=== PATIENT | male | born 1990 | race Caucasian/White ===

== ENCOUNTER 2016-11-08 22:15 | Emergency (ER) | payer OTHER ==
[~2016-11-08] VITALS: Ht 185.4 cm; Wt 79.7 kg
[2016-11-08 22:24] VITALS: TEMP 37.1; Ht 185.4 cm; Wt 79.7 kg
[2016-11-08 22:57] LABS: URINE APPEARANCE CLEAR (CLEAR); URINE BILIRUBIN NEG (NEG); URINE COLOR DK YELLOW; URINE NITRITE NEG (NEG); URINE PH 5.5 (4.5-7.5); URINE SPECIFIC GRAVITY 1.027 (1.000-1.030); UROBILINOGEN NEG (NEG); ZZUR CULT IF INDIC CLEAN CATCH NO
[2016-11-08 22:58] LABS: BASO % 0.4 %; BASO ABS # 0.03 K/uL (0-0.2); COMPLETE YES; EOS % 2.6 %; HEMATOCRIT 49.4 % (42-52); IG% 0.2 %; LYMPH % 37.8 %; LYMPH ABS # 3.05 K/uL (1.2-3.4); MEAN CELL VOLUME 87.9 fL (80-100); MEAN CORPUSCULAR HEMOGLOBIN 31.1 pg (25-34); MEAN CORPUSCULAR HGB CONC 35.4 g/dl (32-36); MEAN PLATELET VOLUME 9.5 fL (7.4-10.4); MONO % 8.8 %; NEUT % 50.2 %; PLATELET COUNT 248 K/uL (130-400); RED BLOOD COUNT 5.62 M/uL (4.7-6.1); WHITE BLOOD COUNT 8.06 K/uL (4.8-10.8)
[2016-11-08 23:00] LABS: MANUAL MICROSCOPIC REQUIRED? NO; REVIEW REQ? NO
[2016-11-08 23:15] LABS: BUN/CREATININE RATIO 18.8 (10-20); CALCIUM 9.1 mg/dl (8.5-10.1); CREATININE 0.86 mg/dl (0.60-1.40); POTASSIUM 3.5 mmol/L (3.5-5.1)
[2016-11-08] MEDS ORDERED: MULT-225 PO (23:49)
[2016-11-08] MEDS ORDERED: ASCO500T16 PO (23:49)
[2016-11-08] MEDS ORDERED: MULT-506 PO (23:50)
--- NOTE | 2016-11-09 00:09 | EMERGENCY ROOM VISIT NOTE ---
History First contact with patient: 22:20 Chief Complaint: URINARY SYMPTOMS Stated Complaint: BURNING WITH URINATION,URINARY FREQUENCY Nursing Triage Summary: pt c/o urinary burning, states SO was dx with UTI today. symptoms "for a couple days." denies discharge History of Present Illness The patient is a 26 year old male who presents to the Emergency Room with complaints of testicular pain, penile pain, dysuria for the past few days. Patient states he has had chlamydia before and symptoms feel similar. Patient denies penile discharge, rashes, fevers, chest pain, dyspnea, abdominal pain, vomiting, diarrhea. He states his girlfriend was told that she had a bladder infection from urgent care. They did not do a pelvic exam. He has had chlamydia before. No other ST eyes. Review of Systems See HPI for pertinent positives & negatives. A total of 10 systems reviewed and were otherwise negative. Past Medical/Surgical History Chlamydia Social History Smoking Status: Current Every Day Smoker Alcohol Use: none Drug Use: none Marital Status: in relationship Current/Historical Medications Scheduled Ascorbic Acid (Ascorbic Acid), 500 MG PO DAILY Multivitamin (Multivitamin), 1 TAB PO DAILY Physical Exam Vital Signs Date Time Temp Pulse Resp B/P (MAP) Pulse Ox O2 Delivery O2 Flow Rate FiO2 11/08/16 23:27 90 16 119/60 97 Room Air 11/08/16 22:24 37.1 95 18 129/84 97 Room Air Physical Exam VITALS: Vitals are noted on the nurse's note and reviewed by myself. Vital signs stable. GENERAL: Pleasant male anxious-appearing, in no acute distress, nondiaphoretic, well-developed well-nourished. SKIN: Capillary reflex less than 2 seconds. HEENT: Normocephalic. PERRLA. EOMI. Nares patent. Mucous membranes moist. Neck is supple without nuchal rigidity. HEART: Regular rate and rhythm without murmurs gallops or rubs. LUNGS: Clear to auscultation bilaterally without wheezes, rales or rhonchi. No retractions or accessory muscle use. ABDOMEN: Positive bowel sounds x 4. Normal tympanic percussion. Soft, nontender, without masses or organomegaly. Landis sign negative. No guarding or rebound tenderness. no CVA tenderness exam: Normal male genitalia, circumcised, no rashes or lesions, right testicle tender to palpation, left testicle normal, cultures taken and sent, linen controller present. Cremasteric reflex intact MUSCULOSKELETAL: No gross musculoskeletal defects. NEURO: Patient was alert and oriented to person place and time. Normal sensation to light and sharp touch. No focal neurological deficits. Medical Decision & Procedures Laboratory Results 11/08/16 22:45 Red Blood Count 5.62, Mean Corpuscular Volume 87.9, Mean Corpuscular Hemoglobin 31.1, Mean Corpuscular Hemoglobin Concent 35.4, Mean Platelet Volume 9.5, Neutrophils (%) (Auto) 50.2, Lymphocytes (%) (Auto) 37.8, Monocytes (%) (Auto) 8.8, Eosinophils (%) (Auto) 2.6, Basophils (%) (Auto) 0.4, Neutrophils # (Auto) 4.04, Lymphocytes # (Auto) 3.05, Monocytes # (Auto) 0.71, Eosinophils # (Auto) 0.21, Basophils # (Auto) 0.03 11/08/16 22:45 Test 11/08/16 22:35 11/08/16 22:45 White Blood Count 8.06 K/uL (4.8-10.8) Red Blood Count 5.62 M/uL (4.7-6.1) Hemoglobin 17.5 g/dL (14.0-18.0) Hematocrit 49.4 % (42-52) Mean Corpuscular Volume 87.9 fL (80-100) Mean Corpuscular Hemoglobin 31.1 pg (25-34) Mean Corpuscular Hemoglobin Concent 35.4 g/dl (32-36) Platelet Count 248 K/uL (130-400) Mean Platelet Volume 9.5 fL (7.4-10.4) Neutrophils (%) (Auto) 50.2 % Lymphocytes (%) (Auto) 37.8 % Monocytes (%) (Auto) 8.8 % Eosinophils (%) (Auto) 2.6 % Basophils (%) (Auto) 0.4 % Neutrophils # (Auto) 4.04 K/uL (1.4-6.5) Lymphocytes # (Auto) 3.05 K/uL (1.2-3.4) Monocytes # (Auto) 0.71 K/uL (0.11-0.59) Eosinophils # (Auto) 0.21 K/uL (0-0.5) Basophils # (Auto) 0.03 K/uL (0-0.2) RDW Standard Deviation 45.2 fL (36.4-46.3) RDW Coefficient of Variation 14.0 % (11.5-14.5) Immature Granulocyte % (Auto) 0.2 % Immature Granulocyte # (Auto) 0.02 K/uL (0.00-0.02) Urine Color DK YELLOW Urine Appearance CLEAR (CLEAR) Urine pH 5.5 (4.5-7.5) Urine Specific [place] 1.027 (1.000-1.030) Urine Protein NEG (NEG) Urine Glucose (UA) NEG (NEG) Urine Ketones TRACE (NEG) Urine Occult Blood NEG (NEG) Urine Nitrite NEG (NEG) Urine Bilirubin NEG (NEG) Urine Urobilinogen NEG (NEG) Urine Leukocyte Esterase NEG (NEG) Anion Gap 6.0 mmol/L (3-11) Est Creatinine Clear Calc Drug Dose 144.2 ml/min Estimated GFR () 136.8 Estimated GFR (Non- 118.0 BUN/Creatinine Ratio 18.8 (10-20) Calcium Level 9.1 mg/dl (8.5-10.1) ED Course Prior records/ancillary studies reviewed. Triage Nursing notes reviewed. The patient's history was concerning for urinary problems. Differential diagnosis: Etiologies such as STI, epididymitis, renal colic, UTI, as well as others were entertained. Physical examination findings: As above. ER treatment provided: Rocephin, Zithromax On reassessment the patient felt better. Diagnostics interpreted by me: The labs revealed negative urine. GC chlamydia culture pending Imaging studies: US SCROTAL: No intratesticular mass lesion or torsion. Small varicoceles. Radiologist: Rosalio Owen M.D. Exam and history seem consistent with STI. Patient has had chlamydia before and symptoms of similar. He was treated for this. He was advised to have his girlfriend checked and to abstain from intercourse until he is reviewed his results. He was advised to follow-up family care in a few days or here in the ER sooner for abdominal Pain, penile discharge, fevers, worsening signs or symptoms or as needed. Patient did not have acute abdomen on exam. He is well- appearing. No signs of torsion. By the evaluation outlined above emergent etiologies such as appendicitis, UTI, testicular torsion, renal colic, as well as others were deemed relatively unlikely. The pt informed about the findings as listed above. All questions were answered and pleased with the treatment. Return instructions were outlined and the patient was discharged in stable condition. Referral: The patient was referred back to their primary care physician for follow-up in 2 to 3 days for a recheck of the current condition. Case reviewed with my attending. Medical Decision As above Medication Reconcilliation Current Medication List: was personally reviewed by me Blood Pressure Screening Patient's blood pressure: Normal blood pressure Impression Primary Impression: Dysuria Additional Impressions: possible STI Screening for STD (sexually transmitted disease) Departure Information Dispostion Home / Self-Care Condition GOOD Referrals No Doctor, Assigned (PCP) Patient Instructions My [facility] Additional Instructions No intercourse until you have reviewed your culture results. Recommend that he have your partner checked for sexual transmitted infections transmitted infections. Ibuprofen(Motrin, Advil) may be used for fever or pain. Use 600mg every six hours as needed. Take with food. Avoid using more than 2400mg in a 24 hour period. Do not use 2400mg per day for more than three consecutive days without physician direction. Prolonged inappropriate use can lead to stomach upset or ulcers. (AND/OR) Acetaminophen(Tylenol) may be used for fever or pain. Use 1000mg every six hours as needed. Avoid using more than 3000mg in a 24 hour period. Rest and drink plenty of fluids as tolerated. Continue current medications. Avoid strenuous activities and anything that worsens your pain. Resume normal activities once your symptoms resolve. Return to the ER immediately for worsening or persistent urinary symptoms, abdominal pain, vomiting, fevers, chest pains, difficulty breathing, worsening of your condition, or as needed. Follow up with your primary physician in 2-3 days for a recheck of your current condition. Problem Qualifiers
[2016-11-09] MEDS ORDERED: AZITHROMYCIN 250 MG TAB PO ONE (00:15)
[2016-11-09] MEDS ORDERED: CEFTRIAXONE SOD INJ 250 MG/ML VIAL IM ONE (00:15)
[2016-11-09] MEDS ORDERED: CEFTRIAXONE SOD 350MG/ML 1 GM VIAL IM ONE (00:16)
[2016-11-09 00:18] VITALS: BP 125/67; PULSE 80; O2SAT 96
--- NOTE | 2016-11-09 07:17 | DIAGNOSTIC IMAGING REPORT ---
(TESTICULAR) SCROTUM-CONT CLINICAL HISTORY: 26 years-old Male with acute bilateral scrotal pain. Initial exam. COMPARISON STUDY: None available TECHNIQUE: Real-time, grayscale, and color Doppler sonography of the testes and scrotum is performed. Images are reviewed in the transverse and longitudinal planes. FINDINGS: RIGHT HEMISCROTUM: The right testis measures 3.0 x 4.5 x 2.1 cm and the parenchyma appears unremarkable. No intratesticular mass is seen. Normal-appearing arterial inflow is present within the right testicle. The right epididymal head demonstrates a nonspecific focal area of increased echogenicity, 0.2 cm and is otherwise unremarkable. Small varicocele is noted. LEFT HEMISCROTUM: The left testis measures 2.5 x 4.6 x 2.3 cm and the parenchyma appears unremarkable. No intratesticular mass is seen. Normal-appearing arterial inflow is present within the left testicle. The left epididymal head appears normal. Small varicocele is noted. IMPRESSION: 1. Normal sonographic appearance of the bilateral testicles without evidence of torsion. 2. Small bilateral varicoceles. The above report was generated using voice recognition software. It may contain grammatical, syntax or spelling errors. Electronically signed by: Lele Blancas M.D. 11/09/2016 7:16 AM Dictated Date/Time: 11/09/2016 7:12 AM
[2016-11-12 08:03] LABS: CHLAMYDIA TRACH RNA*** NOT DETECTED (NOT DETECTED); GC (NEIS GONORRHOEAE)RNA** NOT DETECTED (NOT DETECTED)
== END 2016-11-09 00:35 | disposition home or self-care (01) ==
LOC: C.EDB 22:18 → C.EDC 11-09 00:35
DX: R30.0 Dysuria (principal); Z11.3 Encounter for screening for infections with a predominantly sexual mode of transmission; F17.200 Nicotine dependence, unspecified, uncomplicated

== ENCOUNTER → 2016-11-17 | Outpatient (CLI) | payer OTHER ==
[~2016-11-17] MED LIST: ASCO500T16 PO; MULT-506 PO
== END | disposition home or self-care (01) ==
LOC: C.LAB 01:22
DX: Z02.83 Encounter for blood-alcohol and blood-drug test (principal)

== ENCOUNTER 2016-11-19 19:48 | Emergency (ER) | payer SELFPAY ==
[~2016-11-19] VITALS: Ht 185.4 cm; Wt 79.2 kg
[2016-11-19 19:51] VITALS: TEMP 36.7; O2SAT 98; Ht 185.4 cm; Wt 79.2 kg
[2016-11-19] MEDS ORDERED: KETOROLAC TROMETHAMINE 60 MG/2 ML VIAL IM STA (20:08)
--- NOTE | 2016-11-19 20:34 | EMERGENCY ROOM VISIT NOTE ---
History First contact with patient: 19:55 Chief Complaint: HEADACHE Stated Complaint: BACK,SHOULDER/EAR PAIN, HEADACHE History of Present Illness The patient is a 26 year old male who presents to the Emergency Room with complaints of headaches for the past 2 months. The patient states that over the past 2 months, he has had frequent headaches. The pain radiates across the front of his head and into his ears and jaw. The pain also radiates into his neck and shoulders. He states that the pain does improve at times, but he has been having headaches almost every day. He denies any alleviating or aggravating factors. He has been taking Tylenol, aspirin and ibuprofen with some relief. He rates his discomfort a 7/10 at this time. He denies any associated nausea/vomiting, photosensitivity, vision changes, fevers, confusion , numbness or weakness. He denies any history of headache disorders. This is not the worst headache of his life. Review of Systems A complete 10 point review of systems was reviewed with the patient with pertinent positives and negatives as per history of present illness. All else were negative. Social History Smoking Status: Current Every Day Smoker Alcohol Use: none Drug Use: none Marital Status: in relationship Current/Historical Medications Scheduled Ascorbic Acid (Ascorbic Acid), 500 MG PO DAILY Multivitamin (Multivitamin), 1 TAB PO DAILY Physical Exam Vital Signs Date Time Temp Pulse Resp B/P (MAP) Pulse Ox O2 Delivery O2 Flow Rate FiO2 11/19/16 21:16 72 18 139/80 Room Air 11/19/16 19:51 36.7 87 16 137/89 98 Room Air Physical Exam VITALS: Vitals are noted on the nurse's note and reviewed by myself. Vital signs stable. GENERAL: This is a 26-year-old male, in no acute distress, nondiaphoretic, well- developed well-nourished. HEAD: Normocephalic atraumatic. EARS: External auditory canals clear, tympanic membranes pearly [place] without erythema or effusion bilaterally. EYES: Pupils equal round and reactive to light and accommodation. Conjunctivae without injection, sclerae without icterus. Extraocular movements intact. MOUTH: Mucous membranes moist. Tonsils are not enlarged. Pharynx without erythema or exudate. NECK: Supple without nuchal rigidity. No lymphadenopathy. HEART: Regular rate and rhythm without murmurs gallops or rubs. LUNGS: Clear to auscultation bilaterally without wheezes, rales or rhonchi. MUSCULOSKELETAL: Strength 5/5 throughout. NEURO: Patient was alert and oriented to person place and time. Normal sensation to light and sharp touch. Deep tendon reflexes 2+ throughout. No focal neurological deficits. Medical Decision & Procedures ER Provider Diagnostic Interpretation: CT SCAN OF THE BRAIN WITHOUT IV CONTRAST FINDINGS: Brain parenchyma: The brain parenchyma is normal in appearance. There is no hemorrhage, mass effect, or evidence of acute territorial ischemia by CT criteria. [place]-white matter is preserved. No extra-axial fluid collection is seen. Ventricles, sulci, cisterns: Normal in configuration. Intracranial vasculature: The visualized intracranial vasculature at the skull base is normal in appearance. Calvarium: Unremarkable. Soft tissues: There is a questionable metallic foreign body identified in the frontal scalp. Sinuses and mastoids: The visualized paranasal sinuses are clear. The mastoid air cells are well pneumatized. Orbits: The bony orbits are grossly intact. IMPRESSION: 1. No acute intracranial abnormality. 2. There is a linear foreign body suspected in the frontal scalp. Clinical correlation will be required. Medications Administered Medications (Trade) Dose Ordered Sig/Oseas Route Start Time Stop Time Status Last Admin Dose Admin Ketorolac Tromethamine (Toradol Inj) 60 mg NOW STAT IM 11/19/16 20:08 11/19/16 20:09 DC 11/19/16 20:16 60 MG ED Course Labs were drawn and IV access was obtained. Patient was medicated with [address] of the head was performed and read by radiology as above. Patient was reevaluated and stated he was feeling better. Discharge instructions were reviewed with the patient. The patient verbalized understanding of my assessment and treatment plan and was discharged home in good condition. Medical Decision The differential diagnosis includes acute intracranial bleed, meningitis, encephalitis, mass or mass effect, sinusitis, infection, tumor, headache, temporal arteritis and carbon monoxide exposure, and migraine. The patient is a 26-year-old male who presents today complaining of headaches for the past 2 months. No neurological findings on exam and no evidence of infection. CT of the head was performed and was negative. History is most consistent with tension headaches. Patient does admit to increased stress recently. Conservative measures were discussed with the patient. He will follow-up with his primary care provider regarding his headaches. Based on the patient's presentation and work up, I feel the patient is stable for outpatient treatment. The patient was educated to return to the emergency department for any worsening of their current condition or new/concerning symptoms. He will follow up withbe. Medication Reconcilliation Current Medication List: was personally reviewed by me Blood Pressure Screening Patient's blood pressure: Elevated blood pressure Blood pressure disposition: Did not require urgent referral Impression Primary Impression: Headache Departure Information Dispostion Home / Self-Care Condition GOOD Referrals No Doctor, Assigned (PCP) Forms HOME CARE DOCUMENTATION FORM, IMPORTANT VISIT INFORMATION Patient Instructions ED Headache Tension, My [facility] Additional Instructions You have been treated in the Emergency Department for a Headache. You may try Excedrin Migraine for your headaches. For pain control, you can use the following [id number] medicines (if >12 yo): - Regular strength (325mg/tab) Tylenol (acetaminophen) 2 tabs every 4-6 hours as needed. Do not exceed 12 tablets in a 24 hour period. Avoid taking more than 4 grams (4000 mg) of Tylenol per day. This includes any other sources of acetaminophen you may take on a regular basis. - Regular strength (200 mg/tab) Advil (ibuprofen) 1-2 tabs every 4-6 hours as needed. Do not exceed a dose of 3200 mg per day. You should relax in a quiet, dark place for the rest of the day. Avoid any possible triggers including: cigarette smoke, caffeine, nicotine, chocolate, wine, beer, loud noises or music, or bright lights. Follow-up with your primary care provider regarding your headaches. Return to the Emergency Department if your current symptoms worsen despite treatment course outlined above, or if you develop any of the following symptoms : intractable pain despite aforementioned treatment course, visual disturbances , loss of vision, unilateral weakness or facial drooping, slurring of speech, loss of coordination, or loss of consciousness.
--- NOTE | 2016-11-19 20:38 | DIAGNOSTIC IMAGING REPORT ---
CT SCAN OF THE BRAIN WITHOUT IV CONTRAST CLINICAL HISTORY: Headache of several months duration. COMPARISON STUDY: No priors. TECHNIQUE: Unenhanced axial CT scan of the brain is performed from the vertex to the skull base. A dose lowering technique was utilized adhering to the principles of ALARA. CT DOSE: 537.48 mGy.cm FINDINGS: Brain parenchyma: The brain parenchyma is normal in appearance. There is no hemorrhage, mass effect, or evidence of acute territorial ischemia by CT criteria. [place]-white matter is preserved. No extra-axial fluid collection is seen. Ventricles, sulci, cisterns: Normal in configuration. Intracranial vasculature: The visualized intracranial vasculature at the skull base is normal in appearance. Calvarium: Unremarkable. Soft tissues: There is a questionable metallic foreign body identified in the frontal scalp. Sinuses and mastoids: The visualized paranasal sinuses are clear. The mastoid air cells are well pneumatized. Orbits: The bony orbits are grossly intact. IMPRESSION: 1. No acute intracranial abnormality. 2. There is a linear foreign body suspected in the frontal scalp. Clinical correlation will be required. Electronically signed by: Kelvin Cox M.D. 11/19/2016 8:37 PM Dictated Date/Time: 11/19/2016 8:34 PM
[2016-11-19 21:16] VITALS: BP 139/80; PULSE 72
== END 2016-11-19 21:20 | disposition home or self-care (01) ==
LOC: EEVIPCON 19:50 → C.EDB 19:50 → C.EDC 21:20
DX: R51 Headache (principal); F17.200 Nicotine dependence, unspecified, uncomplicated; Z79.899 Other long term (current) drug therapy

== ENCOUNTER 2016-11-29 12:50 | Emergency (ER) | payer OTHER ==
[~2016-11-29] VITALS: Ht 185.4 cm; Wt 78.3 kg
[2016-11-29 12:58] VITALS: TEMP 36.8; Ht 185.4 cm; Wt 78.3 kg
[2016-11-29] MEDS ORDERED: KETOROLAC TROMETHAMINE 30 MG/ML VIAL IV STA (13:11)
[2016-11-29 13:39] LABS: BASO % 0.2 %; BASO ABS # 0.01 K/uL (0-0.2); COMPLETE YES; EOS % 4.8 %; HEMATOCRIT 48.9 % (42-52); IG% 0.2 %; LYMPH % 34.3 %; LYMPH ABS # 1.71 K/uL (1.2-3.4); MEAN CELL VOLUME 88.4 fL (80-100); MEAN CORPUSCULAR HEMOGLOBIN 30.7 pg (25-34); MEAN CORPUSCULAR HGB CONC 34.8 g/dl (32-36); MEAN PLATELET VOLUME 9.7 fL (7.4-10.4); MONO % 16.3 %; NEUT % 44.2 %; PLATELET COUNT 259 K/uL (130-400); RED BLOOD COUNT 5.53 M/uL (4.7-6.1); WHITE BLOOD COUNT 4.98 K/uL (4.8-10.8)
--- NOTE | 2016-11-29 13:51 | DIAGNOSTIC IMAGING REPORT ---
THORACIC SPINE 3 VIEWS ROUTINE CLINICAL HISTORY: 26 years-old Male presenting with mid back pain s. TECHNIQUE: Frontal and upper and lower lateral views of the thoracic spine were obtained. COMPARISON: None. FINDINGS: Normal thoracic kyphosis. No scoliosis. Vertebral bodies maintain normal height and alignment. Intervertebral disc spaces preserved. No significant degenerative changes evident. No radiographic evidence of fracture or subluxation. Visualized portion of the thorax normal. IMPRESSION: Normal thoracic spine. Electronically signed by: Lio Antunez M.D. 11/29/2016 1:50 PM Dictated Date/Time: 11/29/2016 1:49 PM
[2016-11-29 13:58] LABS: BUN/CREATININE RATIO 20.1 (10-20); CALCIUM 9.5 mg/dl (8.5-10.1); CREATININE 0.83 mg/dl (0.60-1.40); POTASSIUM 3.7 mmol/L (3.5-5.1)
[2016-11-29 14:22] LABS: URINE APPEARANCE CLEAR (CLEAR); URINE BILIRUBIN NEG (NEG); URINE COLOR YELLOW; URINE EPITHELIAL CELL AUTO 0-5 /lpf (0-5); URINE NITRITE NEG (NEG); URINE PH 6.5 (4.5-7.5); URINE SPECIFIC GRAVITY 1.012 (1.000-1.030); UROBILINOGEN NEG (NEG); ZZUR CULT IF INDIC CLEAN CATCH NO
[2016-11-29 14:23] LABS: MANUAL MICROSCOPIC REQUIRED? NO; REVIEW REQ? NO
--- NOTE | 2016-11-29 14:59 | DIAGNOSTIC IMAGING REPORT ---
GALLBLADDER-ABD LIMITED HISTORY: 26 years-old Male elevated lft and bili acute elevated LFTs with right upper quadrant abdominal pain. COMPARISON: None available. TECHNIQUE: Multiple real-time sonographic images of the abdominal right upper quadrant were obtained assessing grayscale appearance and color flow. FINDINGS: The imaged portions of the pancreas are unremarkable with body and tail obscured by bowel gas. Liver demonstrates mildly increased echogenicity suggesting mild fatty infiltration measuring up to 13.5 cm in length. Small mucosal fold noted near the gallbladder neck. No cholelithiasis, gallbladder wall thickening or pericholecystic fluid collections. The common bile duct measures 0.5 cm, within normal limits. No intrahepatic biliary ductal dilation. Imaged right kidney is unremarkable without hydronephrosis. IMPRESSION: 1. No evidence of cholelithiasis or acute cholecystitis. 2. No biliary ductal dilation. 3. Suspected mild fatty infiltration of the liver. The above report was generated using voice recognition software. It may contain grammatical, syntax or spelling errors. Electronically signed by: Lele Blancas M.D. 11/29/2016 2:58 PM Dictated Date/Time: 11/29/2016 2:55 PM
[2016-11-29 15:53] VITALS: BP 114/63; PULSE 63; O2SAT 98
--- NOTE | 2016-11-29 19:11 | EMERGENCY ROOM VISIT NOTE ---
History Report prepared by Karena: Zoe Sheriff Under the Supervision of: Dr. Hipolito Mares D.O. First contact with patient: 13:01 Chief Complaint: FLANK PAIN Stated Complaint: KIDNEY PAIN/STOMACH PAIN History of Present Illness The patient is a 26 year old male who presents to the Emergency Room with complaints of intermittent back pain that began three days ago. He currently rates his discomfort as a 9/10 in severity. The patient reports that three days ago he began noticing mid back pain that does radiate throughout his back. 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 The patient denies any heavy lifting. He reports a change in urination, noting that he feels different, and reports an odor. The patient denies any active medical problems. He denies any IV drug use. The patient uses alcohol intermittently. He reports worsened pain with movement. The patient additionally reports diffuse abdominal pain. Pt denies headache, change in vision, fevers, chest pain, shortness of breath, nausea, vomiting, diarrhea, pain with urination, and melena. Source of History: patient Onset: three days ago Position: back Symptom Intensity: 9/10 Timing: intermittent Associated Symptoms: + abdominal pain, + urinary symptoms (change in urination) Review of Systems See HPI for pertinent positives & negatives. A total of 10 systems reviewed and were otherwise negative. Past Medical & Surgical Medical Problems: (1) No active medical problems Family History Patient reports no known family medical history. Social History Smoking Status: Current Every Day Smoker Alcohol Use: none Drug Use: none Marital Status: in relationship Current/Historical Medications Scheduled Multivitamin (Multivitamin), 1 TAB PO DAILY Allergies Coded Allergies: Shellfish (Verified Allergy, Severe, ANAPHYLAXIS, 11/19/16) Physical Exam Vital Signs Date Time Temp Pulse Resp B/P (MAP) Pulse Ox O2 Delivery O2 Flow Rate FiO2 11/29/16 15:53 63 20 114/63 98 11/29/16 14:54 74 14 113/72 96 Room Air 11/29/16 12:58 36.8 97 20 124/80 98 Room Air Physical Exam GENERAL: alert, sitting up in bed, well appearing, well nourished, no distress, non-toxic EYE EXAM: normal conjunctiva. OROPHARYNX: no exudate, no erythema, lips, buccal mucosa, and tongue normal and mucous membranes are moist NECK: supple, no nuchal rigidity, no adenopathy, non-tender LUNGS: Clear to auscultation. Normal chest wall mechanics HEART: no murmurs, S1 normal and S2 normal ABDOMEN: abdomen soft, non-tender, normo-active bowel sounds, no masses, no rebound or guarding. BACK: Back is symmetrical on inspection and there is no deformity, Mid reproducible thoracic bilateral paraspinal tenderness, no CVA tenderness. SKIN: no rashes and no bruising UPPER EXTREMITIES: upper extremities are grossly normal. LOWER EXTREMITIES: ambulates without difficulty. Flexion and extension at hip, knee, ankle, and EHL are 5/5 bilaterally with gross sensations intact. NEURO EXAM: Normal sensorium, cranial nerves II-XII grossly intact, normal speech, no gross weakness of arms. Medical Decision & Procedures ER Provider Diagnostic Interpretation: Radiology results as stated below per my review and the radiologist's interpretation: THORACIC SPINE 3 VIEWS ROUTINE CLINICAL HISTORY: 26 years-old Male presenting with mid back pain s. TECHNIQUE: Frontal and upper and lower lateral views of the thoracic spine were obtained. COMPARISON: None. FINDINGS: Normal thoracic kyphosis. No scoliosis. Vertebral bodies maintain normal height and alignment. Intervertebral disc spaces preserved. No significant degenerative changes evident. No radiographic evidence of fracture or subluxation. Visualized portion of the thorax normal. IMPRESSION: Normal thoracic spine. Electronically signed by: Lio Antunez M.D. 11/29/2016 1:50 PM Dictated Date/Time: 11/29/2016 1:49 PM GALLBLADDER-ABD LIMITED HISTORY: 26 years-old Male elevated lft and bili acute elevated LFTs with right upper quadrant abdominal pain. COMPARISON: None available. TECHNIQUE: Multiple real-time sonographic images of the abdominal right upper quadrant were obtained assessing grayscale appearance and color flow. FINDINGS: The imaged portions of the pancreas are unremarkable with body and tail obscured by bowel gas. Liver demonstrates mildly increased echogenicity suggesting mild fatty infiltration measuring up to 13.5 cm in length. Small mucosal fold noted near the gallbladder neck. No cholelithiasis, gallbladder wall thickening or pericholecystic fluid collections. The common bile duct measures 0.5 cm, within normal limits. No intrahepatic biliary ductal dilation. Imaged right kidney is unremarkable without hydronephrosis. IMPRESSION: 1. No evidence of cholelithiasis or acute cholecystitis. 2. No biliary ductal dilation. 3. Suspected mild fatty infiltration of the liver. The above report was generated using voice recognition software. It may contain grammatical, syntax or spelling errors. Electronically signed by: Lele Blancas M.D. 11/29/2016 2:58 PM Dictated Date/Time: 11/29/2016 2:55 PM Laboratory Results 11/29/16 13:10 Red Blood Count 5.53, Mean Corpuscular Volume 88.4, Mean Corpuscular Hemoglobin 30.7, Mean Corpuscular Hemoglobin Concent 34.8, Mean Platelet Volume 9.7, Neutrophils (%) (Auto) 44.2, Lymphocytes (%) (Auto) 34.3, Monocytes (%) (Auto) 16.3, Eosinophils (%) (Auto) 4.8, Basophils (%) (Auto) 0.2, Neutrophils # (Auto ) 2.20, Lymphocytes # (Auto) 1.71, Monocytes # (Auto) 0.81, Eosinophils # (Auto ) 0.24, Basophils # (Auto) 0.01 11/29/16 13:10 Test 11/29/16 13:10 White Blood Count 4.98 K/uL (4.8-10.8) Red Blood Count 5.53 M/uL (4.7-6.1) Hemoglobin 17.0 g/dL (14.0-18.0) Hematocrit 48.9 % (42-52) Mean Corpuscular Volume 88.4 fL (80-100) Mean Corpuscular Hemoglobin 30.7 pg (25-34) Mean Corpuscular Hemoglobin Concent 34.8 g/dl (32-36) Platelet Count 259 K/uL (130-400) Mean Platelet Volume 9.7 fL (7.4-10.4) Neutrophils (%) (Auto) 44.2 % Lymphocytes (%) (Auto) 34.3 % Monocytes (%) (Auto) 16.3 % Eosinophils (%) (Auto) 4.8 % Basophils (%) (Auto) 0.2 % Neutrophils # (Auto) 2.20 K/uL (1.4-6.5) Lymphocytes # (Auto) 1.71 K/uL (1.2-3.4) Monocytes # (Auto) 0.81 K/uL (0.11-0.59) Eosinophils # (Auto) 0.24 K/uL (0-0.5) Basophils # (Auto) 0.01 K/uL (0-0.2) RDW Standard Deviation 43.7 fL (36.4-46.3) RDW Coefficient of Variation 13.3 % (11.5-14.5) Immature Granulocyte % (Auto) 0.2 % Immature Granulocyte # (Auto) 0.01 K/uL (0.00-0.02) Urine Color YELLOW Urine Appearance CLEAR (CLEAR) Urine pH 6.5 (4.5-7.5) Urine Specific [place] 1.012 (1.000-1.030) Urine Protein NEG (NEG) Urine Glucose (UA) NEG (NEG) Urine Ketones NEG (NEG) Urine Occult Blood NEG (NEG) Urine Nitrite NEG (NEG) Urine Bilirubin NEG (NEG) Urine Urobilinogen NEG (NEG) Urine Leukocyte Esterase NEG (NEG) Urine WBC (Auto) 0 /hpf (0-5) Urine RBC (Auto) 0-4 /hpf (0-4) Urine Hyaline Casts (Auto) 0 /lpf (0-5) Urine Epithelial Cells (Auto) 0-5 /lpf (0-5) Urine Bacteria (Auto) NEG (NEG) Anion Gap 9.0 mmol/L (3-11) Est Creatinine Clear Calc Drug Dose 146.7 ml/min Estimated GFR () 138.8 Estimated GFR (Non- 119.7 BUN/Creatinine Ratio 20.1 (10-20) Calcium Level 9.5 mg/dl (8.5-10.1) Total Bilirubin 1.1 mg/dl (0.2-1) Direct Bilirubin 0.4 mg/dl (0-0.2) Aspartate Amino Transf (AST/SGOT) 182 U/L (15-37) Alanine Aminotransferase (ALT/SGPT) 371 U/L (12-78) Alkaline Phosphatase 74 U/L (45-117) Total Protein 8.9 gm/dl (6.4-8.2) Albumin 4.3 gm/dl (3.4-5.0) Lipase 172 U/L (73-393) Laboratory results per my review. Medications Administered Medications (Trade) Dose Ordered Sig/Oseas Route Start Time Stop Time Status Last Admin Dose Admin Ketorolac Tromethamine (Toradol Inj) 30 mg NOW STAT IV 11/29/16 13:11 11/29/16 13:12 DC 11/29/16 13:17 30 MG ED Course ED COURSE: Vital signs were reviewed and showed normal vitals The patients medical record was reviewed The above diagnostic studies were performed and reviewed. ED treatments and interventions as stated above. 1302: The patient was evaluated in room B11B. A complete history and physical examination was performed. 1311: Ordered Toradol Inj 30 mg IV. 1521: Upon reevaluation, the patient is resting comfortably.I discussed my findings with the patient and he understands and agrees with the treatment plan. He states that he regularly drinks a 6 pack of beer per night and states that he only has withdraw symptoms when he drinks whiskey which he has not recently. Based on the patients age, coexisting illnesses, exam and lab findings the decision to treat as an outpatient was made. The patient remained stable while under my care. The patient appeared well at the time of discharge. Medical Decision Differential diagnoses includes but is not limited to lumbar radiculopathy, muscle strain, facture, cauda equina, mass, and disc herniation. Patient is a 18-year-old male who presents to ER for midthoracic back pain which is bilateral paraspinal reproducible on exam. She notes that started 3 days ago. He also complains of abdominal pain which has been intermittent and migratory throughout his whole abdomen. He currently has no pain today. He also notes it feels different when he urinates has no pain or burning. No urinary frequency. Abdominal exam is benign. X-ray of the thoracic was unremarkable. CBC and BMP were unremarkable. LFTs are elevated to 180s 300. He denies taking Tylenol. He does admit to drinking a sixpack of beer per day. Ultrasound right upper quadrant shows fatty liver and normal gallbladder. I updated the patient regards to his findings. Stressed the importance of not drinking following up with GI within the week. LFTs need to be rechecked by PCP within three days. Discussed with Pt concerning signs and symptoms to watch out for. Pt was instructed to follow up with their PCP and discussed with the patient their option to return to the ED at anytime for persistent or worsening symptoms. The appropriate anticipatory guidance and out-patient management, including indications for return to the emergency department, were explained at length to the patient and understood. Medication Reconcilliation Current Medication List: was personally reviewed by me Blood Pressure Screening Patient's blood pressure: Normal blood pressure Blood pressure disposition: Did not require urgent referral Impression Primary Impression: Musculoskeletal back pain Additional Impressions: Transaminitis Fatty liver Scribe Attestation The scribe's documentation has been prepared under my direction and personally reviewed by me in its entirety. I confirm that the note above accurately reflects all work, treatment, procedures, and medical decision making performed by me. Departure Information Dispostion Home / Self-Care Referrals No Doctor, Assigned (PCP) Yanick Pulido D.O. Forms HOME CARE DOCUMENTATION FORM, IMPORTANT VISIT INFORMATION Patient Instructions ALT, Back Pain - [facility], My [facility] Additional Instructions Please follow up with your primary care doctor or if you are a student, [facility] with in the next 24 hours. Any worsening of your symptoms, please return to the ED immediately. This includes any fevers greater than 100.4, worsening pain, chest pain, shortness breath, persistent nausea, vomiting, unable to eat or drink, or any other concerning signs or symptoms from your standpoint. Please follow up with GI as listed below. Please stop drinking alcohol as this is causing likely the elevation in her liver functions. Please follow up with your primary care doctor in 1 week to have your liver functions rechecked. Problem Qualifiers
== END 2016-11-29 15:50 | disposition home or self-care (01) ==
LOC: C.EDB 12:51
DX: M54.9 Dorsalgia, unspecified (principal); R74.0 Nonspecific elevation of levels of transaminase and lactic acid dehydrogenase [LDH]; K76.0 Fatty (change of) liver, not elsewhere classified; R10.9 Unspecified abdominal pain; F17.200 Nicotine dependence, unspecified, uncomplicated

== ENCOUNTER 2017-02-07 13:13 | Emergency (ER) | payer SELFPAY ==
[~2017-02-07 13:13] MED LIST changes: -ASCO500T16 PO; +OMEG10007 PO; +VITACAP26 PO
[2017-02-07 13:24] VITALS: TEMP 36.4
[2017-02-07] MEDS ORDERED: AZITHROMYCIN 250 MG TAB PO STA (13:43)
[2017-02-07] MEDS ORDERED: CEFTRIAXONE SOD 350MG/ML 1 GM VIAL IM STA (13:43)
[2017-02-07] MEDS ORDERED: DOXY-300 PO (14:05)
--- NOTE | 2017-02-07 14:05 | EMERGENCY ROOM VISIT NOTE ---
History First contact with patient: 13:33 Chief Complaint: STD MALE Stated Complaint: LOWER ABD PAIN Nursing Triage Summary: Pt presents with pain in lower abdomen and penis/scrotum two days ago. Pt had unprotected sex 3 days ago, worried about a possible STD. Pt verbalizes the pain is gone now and he thinks he is just paranoid, but wants STD testing. History of Present Illness The patient is a 26 year old male who presents to the Emergency Room via private vehicle with complaints of "lower abdominal pain". The patient states that he has a history of fatty liver disease, and notes that he has small little red blotches to his skin and his had this for quite some time and also is concerned about having a protected sex 3 days ago and notes that he has suprapubic abdominal pain, and questions whether or not he has some testicular discomfort. He denies any penile drainage. He declines any testing and would just like to be empirically treated for potential STD. Review of Systems A complete 6-point Review of Systems was discussed with the patient, with pertinent positives and negatives listed in the History of Present Illness. All remaining Review of Systems questions can be considered negative unless otherwise specified. Past Medical/Surgical History Medical Problems: (1) No active medical problems Family History Patient reports no known family medical history. No pertinent. Social History Smoking Status: Never Smoker Alcohol Use: none Drug Use: none Marital Status: in relationship Patient lives locally. Current/Historical Medications Scheduled Doxycycline (Monohydrate) (Doxycycline), 100 MG PO BID Fish Oil (Tillar-3), 1 CAP PO DAILY Multivitamin (Multivitamin), 1 TAB PO DAILY Vitamins C & E (Vitamin C), 1 CAP PO DAILY Physical Exam Vital Signs Date Time Temp Pulse Resp B/P (MAP) Pulse Ox O2 Delivery O2 Flow Rate FiO2 02/07/17 14:15 86 16 132/84 96 02/07/17 13:24 36.4 90 18 128/87 97 Room Air Physical Exam VITAL SIGNS - Vital signs and nursing notes were reviewed. Stable. GENERAL -26-year-old male appearing his stated age who is in no acute distress. Communicates well with provider and answers questions appropriately. SKIN - there is a small faint macular like rash that is apparent upon the patient's body. It is very sparse, and I suspected to be normal variation. LUNGS - Chest wall symmetric without accessory muscle use, intercostals retractions, or central cyanosis. Normal vesicular breath sounds CTA B/L. No wheezes, rales, or rhonchi appreciated. CARDIAC - RRR with S1/S2. No murmur, rubs, or gallops appreciated. Genital exam declined. Medical Decision & Procedures Medications Administered Medications (Trade) Dose Ordered Sig/Oseas Route Start Time Stop Time Status Last Admin Dose Admin Azithromycin (Zithromax Tab) 1,000 mg NOW STAT PO 02/07/17 13:43 02/07/17 13:44 DC 02/07/17 13:51 1,000 MG Ceftriaxone Sodium (Rocephin Im) 250 mg NOW STAT IM 02/07/17 13:43 02/07/17 13:44 DC 02/07/17 13:53 250 MG Medical Decision Patient was seen and evaluated as above. He presents to us today with concern over sexually transmitted infection. He would like to be apparently treated. He declines blood work, urine, swab, ultrasound of the testicles. He notes that he is concerned because he has no insurance and would just like to be. We treated for potential STDs. He'll be given Rocephin and azithromycin as well as doxycycline if this persists. He was educated upon management, educated upon worrisome symptoms which to return, was given the paperwork for [employer] [facility] of which she is to follow with and was discharged home in good condition. In evaluation treatment this patient following differential diagnoses were entertained: Sexual transmitted infection, UTI, testicular etiologies, among others. Impression Primary Impression: Suprapubic discomfort Departure Information Dispostion Home / Self-Care Condition GOOD Prescriptions Doxycycline (Monohydrate) (Doxycycline) 100 Mg Cap 100 MG PO BID for 14 Days, #28 TABS Prov: Andres Chisholm PA-C 02/07/17 Referrals No Doctor, Assigned (PCP) Patient Instructions [facility] Additional Instructions You were seen in the emergency department for evaluation of the genitalia. You have been given Rocephin and azithromycin. If your symptoms do not resolve in next 24 hours please begin the doxycycline. You have been prescribed Doxycycline to be taken as prescribed. This is an antibiotic. All antibiotics have the potential to cause diarrhea. Stop this medication and contact a medical provider if you were to develop any significant adverse side effects including: wheezing, shortness of breath, passing out, vomiting, or a diffuse rash. Always take antibiotics as directed and COMPLETE the ENTIRE course regardless of the improvement of your symptoms. Protect yourself with sunscreen while on this antibiotic as it increases your skin's sensitivity to the light and cause bad sunburns. In addition, you should be sure to take this pill after eating. Make sure the pill is completely swallowed as this medication can cause irritation to the lining of the esophagus. Do NOT drink milk or eat anything with large amounts of Calcium in them 1 hour prior to taking this medication as this will decrease the effectiveness of the medication. Please follow-up with [employer] [facility]. Please return with any new/concerning symptoms.
[2017-02-07 14:15] VITALS: BP 132/84; PULSE 86; O2SAT 96
== END 2017-02-07 14:09 | disposition home or self-care (01) ==
LOC: C.EDB 13:14 → C.EDD 14:09
DX: R10.9 Unspecified abdominal pain (principal); K76.0 Fatty (change of) liver, not elsewhere classified

== ENCOUNTER 2017-03-23 17:58 | Emergency (ER) | payer OTHER ==
[~2017-03-23] VITALS: Ht 188 cm; Wt 78.0 kg
[~2017-03-23 17:58] MED LIST changes: +DOXY-300 PO
[2017-03-23 18:20] VITALS: TEMP 37.1; Ht 188 cm; Wt 78.0 kg
[2017-03-23] MEDS ORDERED: ASCA500 PO (18:41)
[2017-03-23 18:54] LABS: BASO % 0.3 %; BASO ABS # 0.02 K/uL (0-0.2); EOS ABS # 0.21 K/uL (0-0.5); HEMATOCRIT 45.2 % (42-52); HEMOGLOBIN 16.1 g/dL (14.0-18.0); IG# 0.01 K/uL (0.00-0.02); LYMPH % 33.6 %; LYMPH ABS # 2.34 K/uL (1.2-3.4); MEAN CELL VOLUME 86.1 fL (80-100); MEAN CORPUSCULAR HEMOGLOBIN 30.7 pg (25-34); MEAN CORPUSCULAR HGB CONC 35.6 g/dl (32-36); MONO % 7.2 %; NEUT % 55.8 %; NEUT ABS # 3.88 K/uL (1.4-6.5); PLATELET COUNT 229 K/uL (130-400); RED CELL DISTRIBUTION WIDTH CV 12.8 % (11.5-14.5); RED CELL DISTRIBUTION WIDTH SD 40.8 fL (36.4-46.3); WHITE BLOOD COUNT 6.96 K/uL (4.8-10.8)
[2017-03-23 19:14] LABS: ALBUMIN 4.2 gm/dl (3.4-5.0); CREATININE 1.13 mg/dl (0.60-1.40); POTASSIUM 3.9 mmol/L (3.5-5.1)
[2017-03-23 19:16] LABS: TOTAL PROTEIN 8.3 gm/dl (6.4-8.2)
--- NOTE | 2017-03-23 19:16 | DIAGNOSTIC IMAGING REPORT ---
SINGLE VIEW CHEST CLINICAL HISTORY: Left flank pain. FINDINGS: 2 AP, portable, upright chest radiographs are obtained. No prior studies are available for comparison at the time of dictation. The examination is degraded by portable technique and patient rotation. The cardiomediastinal silhouette is unremarkable. The lungs and pleural spaces are clear. No pneumothorax is seen. The bony thorax is grossly intact. IMPRESSION: No active disease in the chest. Electronically signed by: Kelvin Cox M.D. 03/23/2017 7:14 PM Dictated Date/Time: 03/23/2017 7:14 PM
--- NOTE | 2017-03-23 19:56 | DIAGNOSTIC IMAGING REPORT ---
CT SCAN OF THE ABDOMEN AND PELVIS WITHOUT IV CONTRAST CLINICAL HISTORY: Left flank pain. COMPARISON STUDY: Abdominal ultrasound dated 11/29/2016. TECHNIQUE: CT scan of the abdomen and pelvis is performed from the lung bases to the proximal femora. Images are reviewed in the axial, sagittal, and coronal planes. IV contrast was not administered for this examination as per the referring clinician. A dose lowering technique was utilized adhering to the principles of ALARA. CT DOSE: 288.83 mGy.cm FINDINGS: Lung bases: The heart is normal in size and without pericardial effusion. The lung bases are clear. Liver: The unenhanced liver is normal in size, contour, and attenuation. There is no intrahepatic biliary ductal dilatation. Gallbladder: Contracted. Spleen: Top normal in size and homogeneous in attenuation. Pancreas: Unremarkable. Adrenal glands: Unremarkable. Kidneys: The unenhanced kidneys are normal in size. There is mild right-sided hydronephrosis. There is mild fullness of the left renal collecting system. There is a punctate nonobstructing left renal calculus. No right renal calculi are identified. There is no evidence of contour deforming renal mass lesion. Abdominal vasculature: The abdominal aorta is normal in course and caliber. Bowel: There is mild to moderate colonic fecal retention. No bowel obstruction is seen. The appendix is well-visualized and normal. Peritoneum: There is no intraperitoneal free air or abdominal ascites. There is a small fat-containing umbilical hernia. Lymphadenopathy: None. Pelvic viscera: The bladder is distended and grossly unremarkable. The prostate and seminal vesicles are normal as imaged. Skeletal structures: No lytic or blastic lesions are seen. 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 No anterolisthesis is seen at L5-S1. IMPRESSION: 1. There is mild right-sided hydronephrosis. No obstructing lesion/calculus is identified and this may represent the sequelae of a recently passed kidney stone. Correlation with clinical findings and urinalysis will be required. 2. There is a punctate nonobstructing left renal calculus. No right renal calculi are seen. 3. Mild to moderate colonic fecal retention. Electronically signed by: Kelvin Cox M.D. 03/23/2017 7:55 PM Dictated Date/Time: 03/23/2017 7:48 PM
[2017-03-23] MEDS ORDERED: KETOROLAC TROMETHAMINE 30 MG/ML VIAL IV STA (20:07)
[2017-03-23 20:38] VITALS: BP 134/76; PULSE 76; O2SAT 98
--- NOTE | 2017-03-24 00:37 | EMERGENCY ROOM VISIT NOTE ---
History Report prepared by Sherronibjan: Mary Dietz Under the Supervision of: Cassie MartinezO. First contact with patient: 18:23 Chief Complaint: FLANK PAIN Stated Complaint: LEG PAIN, FLANK PAIN, ABDOMINAL DISCOMFORT History of Present Illness The patient is a 27 year old male who presents to the Emergency Room with complaints of intermittent left flank pain since September 2016. The pain wraps around the LUQ as an alternating stabbing and dull pain. He currently rates his pain a 10/10 in severity. He notes that he has been experiencing muscular pain that originated in his neck September 2016 and then migrated to his arms, alternates between his right and left flank, back, and has migrated to his legs. He notes the pain is intermittent and seems more muscular in nature. He denies any joint pain. He states that a hot bath helps alleviate some of the pain. He notes mild shortness of breath, though he recently quit smoking and states the shortness of breath has mildly resolved. He also notes a history of anxiety from the pain. He notes intermittent nausea and vomiting, though no recent episodes. Pt denies headache, change in vision, fevers, chest pain, shortness of breath, weakness/numbness in legs, diarrhea, pain with urination, and melena. Source of History: patient Onset: September 2016 Position: other (left flank) Symptom Intensity: 10/10 Timing: intermittent Associated Symptoms: + SOB (mild), + nausea, + vomiting, + back pain, No fevers, No headache, No chest pain, No melena, No diarrhea, No urinary symptoms (no pain with urination), No weakness (legs), No numbness (legs) Note: He notes arm pain, flank pain, and leg pain. He denies any joint pain. He notes anxiety. He denies any change in vision. Review of Systems See HPI for pertinent positives & negatives. A total of 10 systems reviewed and were otherwise negative. Past Medical & Surgical Medical Problems: (1) No active medical problems Family History Patient reports no known family medical history. Social History Smoking Status: Former Smoker Alcohol Use: none Drug Use: none Marital Status: in relationship Occupation Status: employed Current/Historical Medications Scheduled Ascorbic Acid (Vitamin C), 500 MG PO DAILY Fish Oil (Wheeler-3), 1 CAP PO DAILY Multivitamin (Multivitamin), 1 TAB PO DAILY Allergies Coded Allergies: Shellfish (Verified Allergy, Severe, ANAPHYLAXIS, 03/23/17) Physical Exam Vital Signs Date Time Temp Pulse Resp B/P (MAP) Pulse Ox O2 Delivery O2 Flow Rate FiO2 03/23/17 20:38 76 16 134/76 98 03/23/17 18:20 37.1 84 20 120/73 97 Room Air Physical Exam GENERAL: Sitting up in bed, alert, well appearing, well nourished, no distress, non-toxic EYE EXAM: normal conjunctiva. OROPHARYNX: no exudate, no erythema, lips, buccal mucosa, and tongue normal and mucous membranes are moist NECK: supple, no nuchal rigidity, no adenopathy, non-tender LUNGS: Clear to auscultation. Normal chest wall mechanics HEART: no murmurs, S1 normal and S2 normal ABDOMEN: abdomen soft, non-tender, normo-active bowel sounds, no masses, no rebound or guarding. BACK: Back is symmetrical on inspection and there is no deformity, no midline tenderness, no CVA tenderness. SKIN: no rashes and no bruising UPPER EXTREMITIES: upper extremities are grossly normal. LOWER EXTREMITIES: No pitting edema. NEURO EXAM: Normal sensorium, cranial nerves II-XII grossly intact, normal speech, no gross weakness of arms, no gross weakness of legs. Medical Decision & Procedures ER Provider Diagnostic Interpretation: Radiology results as stated below per my review and the radiologist's interpretation: SINGLE VIEW CHEST CLINICAL HISTORY: Left flank pain. FINDINGS: 2 AP, portable, upright chest radiographs are obtained. No prior studies are available for comparison at the time of dictation. The examination is degraded by portable technique and patient rotation. The cardiomediastinal silhouette is unremarkable. The lungs and pleural spaces are clear. No pneumothorax is seen. The bony thorax is grossly intact. IMPRESSION: No active disease in the chest. Electronically signed by: Kelvin Cox M.D. 03/23/2017 7:14 PM Dictated Date/Time: 03/23/2017 7:[address] SCAN OF THE ABDOMEN AND PELVIS WITHOUT IV CONTRAST CLINICAL HISTORY: Left flank pain. COMPARISON STUDY: Abdominal ultrasound dated 11/29/2016. TECHNIQUE: CT scan of the abdomen and pelvis is performed from the lung bases to the proximal femora. Images are reviewed in the axial, sagittal, and coronal planes. IV contrast was not administered for this examination as per the referring clinician. A dose lowering technique was utilized adhering to the principles of ALARA. CT DOSE: 288.83 mGy.cm FINDINGS: Lung bases: The heart is normal in size and without pericardial effusion. The lung bases are clear. Liver: The unenhanced liver is normal in size, contour, and attenuation. There is no intrahepatic biliary ductal dilatation. Gallbladder: Contracted. Spleen: Top normal in size and homogeneous in attenuation. Pancreas: Unremarkable. Adrenal glands: Unremarkable. Kidneys: The unenhanced kidneys are normal in size. There is mild right-sided hydronephrosis. There is mild fullness of the left renal collecting system. There is a punctate nonobstructing left renal calculus. No right renal calculi are identified. There is no evidence of contour deforming renal mass lesion. Abdominal vasculature: The abdominal aorta is normal in course and caliber. Bowel: There is mild to moderate colonic fecal retention. No bowel obstruction is seen. The appendix is well-visualized and normal. Peritoneum: There is no intraperitoneal free air or abdominal ascites. There is a small fat-containing umbilical hernia. Lymphadenopathy: None. Pelvic viscera: The bladder is distended and grossly unremarkable. The prostate and seminal vesicles are normal as imaged. Skeletal structures: No lytic or blastic lesions are seen. 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 No anterolisthesis is seen at L5-S1. IMPRESSION: 1. There is mild right-sided hydronephrosis. No obstructing lesion/calculus is identified and this may represent the sequelae of a recently passed kidney stone. Correlation with clinical findings and urinalysis will be required. 2. There is a punctate nonobstructing left renal calculus. No right renal calculi are seen. 3. Mild to moderate colonic fecal retention. Electronically signed by: Kelvin Cox M.D. 03/23/2017 7:55 PM Dictated Date/Time: 03/23/2017 7:48 PM Laboratory Results 03/23/17 18:44 Red Blood Count 5.25, Mean Corpuscular Volume 86.1, Mean Corpuscular Hemoglobin 30.7, Mean Corpuscular Hemoglobin Concent 35.6, Mean Platelet Volume 10.0, Neutrophils (%) (Auto) 55.8, Lymphocytes (%) (Auto) 33.6, Monocytes (%) (Auto) 7.2, Eosinophils (%) (Auto) 3.0, Basophils (%) (Auto) 0.3, Neutrophils # (Auto) 3.88, Lymphocytes # (Auto) 2.34, Monocytes # (Auto) 0.50, Eosinophils # (Auto) 0.21, Basophils # (Auto) 0.02 03/23/17 18:44 Test 03/23/17 18:44 03/23/17 18:45 White Blood Count 6.96 K/uL (4.8-10.8) Red Blood Count 5.25 M/uL (4.7-6.1) Hemoglobin 16.1 g/dL (14.0-18.0) Hematocrit 45.2 % (42-52) Mean Corpuscular Volume 86.1 fL (80-100) Mean Corpuscular Hemoglobin 30.7 pg (25-34) Mean Corpuscular Hemoglobin Concent 35.6 g/dl (32-36) Platelet Count 229 K/uL (130-400) Mean Platelet Volume 10.0 fL (7.4-10.4) Neutrophils (%) (Auto) 55.8 % Lymphocytes (%) (Auto) 33.6 % Monocytes (%) (Auto) 7.2 % Eosinophils (%) (Auto) 3.0 % Basophils (%) (Auto) 0.3 % Neutrophils # (Auto) 3.88 K/uL (1.4-6.5) Lymphocytes # (Auto) 2.34 K/uL (1.2-3.4) Monocytes # (Auto) 0.50 K/uL (0.11-0.59) Eosinophils # (Auto) 0.21 K/uL (0-0.5) Basophils # (Auto) 0.02 K/uL (0-0.2) RDW Standard Deviation 40.8 fL (36.4-46.3) RDW Coefficient of Variation 12.8 % (11.5-14.5) Immature Granulocyte % (Auto) 0.1 % Immature Granulocyte # (Auto) 0.01 K/uL (0.00-0.02) D-Dimer < 190 ug/L FEU (0-500) Anion Gap 4.0 mmol/L (3-11) Est Creatinine Clear Calc Drug Dose 106.4 ml/min Estimated GFR () 101.2 Estimated GFR (Non- 87.4 BUN/Creatinine Ratio 23.8 (10-20) Calcium Level 9.0 mg/dl (8.5-10.1) Total Bilirubin 0.4 mg/dl (0.2-1) Direct Bilirubin 0.1 mg/dl (0-0.2) Aspartate Amino Transf (AST/SGOT) 45 U/L (15-37) Alanine Aminotransferase (ALT/SGPT) 102 U/L (12-78) Alkaline Phosphatase 48 U/L (45-117) Total Protein 8.3 gm/dl (6.4-8.2) Albumin 4.2 gm/dl (3.4-5.0) Lipase 167 U/L (73-393) Urine Color YELLOW Urine Appearance CLEAR (CLEAR) Urine pH 7.0 (4.5-7.5) Urine Specific Marland 1.028 (1.000-1.030) Urine Protein NEG (NEG) Urine Glucose (UA) NEG (NEG) Urine Ketones NEG (NEG) Urine Occult Blood NEG (NEG) Urine Nitrite NEG (NEG) Urine Bilirubin NEG (NEG) Urine Urobilinogen NEG (NEG) Urine Leukocyte Esterase NEG (NEG) Urine WBC (Auto) 0 /hpf (0-5) Urine RBC (Auto) 0-4 /hpf (0-4) Urine Hyaline Casts (Auto) 1-5 /lpf (0-5) Urine Epithelial Cells (Auto) 0-5 /lpf (0-5) Urine Bacteria (Auto) NEG (NEG) Laboratory results per my review. Medications Administered Medications (Trade) Dose Ordered Sig/Oseas Route Start Time Stop Time Status Last Admin Dose Admin Ketorolac Tromethamine (Toradol Inj) 30 mg NOW STAT IV 03/23/17 20:07 03/23/17 20:08 DC 03/23/17 20:07 30 MG ECG Indication: other (left flank pain) Rate (beats per minute): 76 Rhythm: sinus rhythm Findings: no ectopy, other (Normal axis. ) Comparison ECG Date: Patient's electrocardiogram interpreted by me ED Course ED COURSE: Vital signs were reviewed and showed normal. The patients medical record was reviewed The above diagnostic studies were performed and reviewed. ED treatments and interventions as stated above. 1824: The patient was evaluated in room C7. A complete history and physical examination was performed. 2004: Upon reevaluation, I discussed my findings with the patient and he understands and agrees with the treatment plan. Based on the patients age, coexisting illnesses, exam and lab findings the decision to treat as an outpatient was made. The patient remained stable while under my care. The patient appeared well at the time of discharge. 2007: Ordered Toradol 30 mg IV Medical Decision Differential diagnoses includes but is not limited to gastritis, peptic ulcer disease, GERD, gallbladder disease, pancreatitis, small bowel obstruction, acute coronary syndrome, pericarditis, ischemic bowel, irritable bowel disease, irritable bowel syndrome, appendicitis, diverticulitis, malignancy, hernia, urinary tract infection, torsion, perforation, trauma, infectious. Patient is a 27-year-old male who presents to ER for left upper quadrant abdominal pain which is present for the past several months. No exacerbating or remitting factors. Patient notes that this pain was from [id number]. CBC all BMP, LFTs have improved, bilirubin and lipase is unremarkable. UA was negative. D-dimer was negative. CT of the abdomen and pelvis showed a mildly enlarged right ureter. There is no hematuria. I feel as though this is likely chronic. Patient was updated regards to his findings. Patient was discharged follow-up with his PCP as an outpatient. Discussed with Pt concerning signs and symptoms to watch out for. Pt was instructed to follow up with their PCP and discussed with the patient their option to return to the ED at anytime for persistent or worsening symptoms. The appropriate anticipatory guidance and out- patient management, including indications for return to the emergency department , were explained at length to the patient and understood. Medication Reconcilliation Current Medication List: was personally reviewed by me Blood Pressure Screening Patient's blood pressure: Normal blood pressure Impression Primary Impression: Left flank pain Additional Impression: Transaminitis Scribe Attestation The scribe's documentation has been prepared under my direction and personally reviewed by me in its entirety. I confirm that the note above accurately reflects all work, treatment, procedures, and medical decision making performed by me. Departure Information Dispostion Home / Self-Care Referrals No Doctor, Assigned (PCP) Forms HOME CARE DOCUMENTATION FORM, IMPORTANT VISIT INFORMATION, School Instructions, Work Instructions Patient Instructions ED Flank Pain Uncertain Cause, My [facility] Additional Instructions Please follow up with your primary care doctor with in the next 24 hours. Any worsening of your symptoms, please return to the ED immediately. This includes any fevers greater than 100.4, worsening pain, chest pain, shortness breath, persistent nausea, vomiting, unable to eat or drink, or any other concerning signs or symptoms from your standpoint. Your right ureter is slightly larger than normal. Please follow up with your primary care doctor in regards to this within the next week. Problem Qualifiers
== END 2017-03-23 20:39 | disposition home or self-care (01) ==
LOC: C.EDB 17:59 → C.EDC 20:39
DX: R10.12 Left upper quadrant pain (principal); R74.0 Nonspecific elevation of levels of transaminase and lactic acid dehydrogenase [LDH]; Z87.891 Personal history of nicotine dependence

== ENCOUNTER 2017-04-21 19:21 | Emergency (ER) | payer OTHER ==
[~2017-04-21] VITALS: Ht 185.4 cm; Wt 74.7 kg
[~2017-04-21 19:21] MED LIST changes: +ASCA500 PO; -DOXY-300 PO; -VITACAP26 PO
[2017-04-21 19:24] VITALS: TEMP 36.7; Ht 185.4 cm; Wt 74.7 kg
[2017-04-21] MEDS ORDERED: LIDOCAINE HCL 2% VISC SOLN 20 ML UDC PO STA (19:49)
[2017-04-21] MEDS ORDERED: ALUMINUM/MAGNESIUM SUSP 30 ML UDC PO STA (19:49)
--- NOTE | 2017-04-21 20:27 | DIAGNOSTIC IMAGING REPORT ---
CHEST ONE VIEW PORTABLE HISTORY: Atypical chest pain. COMPARISON: 03/23/2017. FINDINGS: The lungs are clear. Cardiac silhouette is normal in size. No pleural effusions. No pneumothorax. IMPRESSION: No acute process. Electronically signed by: Power Hernandez M.D. 04/21/2017 8:26 PM Dictated Date/Time: 04/21/2017 8:24 PM
--- NOTE | 2017-04-21 20:41 | EMERGENCY ROOM VISIT NOTE ---
History Report prepared by Karena: Joyce Cho Under the Supervision of: Dr. Yuko Christianson M.D. First contact with patient: 19:44 Chief Complaint: CHEST PAIN Stated Complaint: CHEST PAIN/BACK PAIN Nursing Triage Summary: Patient ambulatory to triage with an upright and steady gait, states "I am having chest and back pain that started several days ago. It hurts to breathe and I have pain in the center of my chest. I was having similar pain in my flank a few weeks ago. That same pain seems to have migrated up into my chest and back. I have been here for this like 10 times and nobody can tell me what is going on." History of Present Illness The patient is a 27 year old male who presents to the Emergency Room with complaints of persistent chest pain starting 1-2 weeks ago. He has been having pain in his flank for the past 6 months. He has been taking ibuprofen every 6 hours for his pain to no significant relief. This pain seems to have migrated into his chest in the past 1-2 weeks. The pain does not worsen with deep breaths. He has felt SOB with going up the stairs at times. He has had sharp pain in his upper abdomen which worsens with deep breaths. He denies any dark stools, bloody stools, or constipation. The patient does smoke, but he has cut down to 2 cigarettes a day. He admits to using alcohol to relieve anxiety in the past. Source of History: patient Onset: 1-2 weeks ago Position: chest Quality: other (pain) Timing: other (persistent) Associated Symptoms: + SOB, + abdominal pain, No melena, No hematochezia Note: Pt reports flank pain. Review of Systems See HPI for pertinent positives & negatives. A total of 10 systems reviewed and were otherwise negative. Past Medical & Surgical Medical Problems: (1) Kidney stones (2) No active medical problems Family History Patient reports no known family medical history. Social History Smoking Status: Current Every Day Smoker Alcohol Use: other (h/o heavy use, none recently) Marital Status: in relationship Occupation Status: employed Current/Historical Medications Scheduled Omeprazole (Prilosec), 20 MG PO DAILY Scheduled PRN Ranitidine Hcl (Zantac), 150 MG PO BID PRN for gastritis Allergies Coded Allergies: Shellfish (Verified Allergy, Severe, ANAPHYLAXIS, 04/21/17) Physical Exam Vital Signs Date Time Temp Pulse Resp B/P (MAP) Pulse Ox O2 Delivery O2 Flow Rate FiO2 04/21/17 22:31 124/73 04/21/17 22:20 74 18 99 04/21/17 22:05 73 19 100 04/21/17 22:00 116/78 04/21/17 21:35 67 13 99 04/21/17 21:30 120/78 04/21/17 21:26 80 20 100 04/21/17 21:11 70 19 100 04/21/17 21:01 125/79 04/21/17 20:56 67 20 100 04/21/17 20:51 65 18 100 Room Air 04/21/17 20:36 71 20 100 04/21/17 20:36 69 04/21/17 20:30 117/74 04/21/17 20:21 72 18 100 04/21/17 20:07 129/73 04/21/17 20:06 75 13 100 Room Air 04/21/17 19:27 99 Room Air 04/21/17 19:24 36.7 84 20 119/78 99 Room Air Physical Exam Vital signs reviewed. General: Well-appearing male, in no significant distress. HEENT: No scleral icterus, PERRLA, neck supple. Atraumatic. Cardiovascular: Regular rate and rhythm, no extra sounds. Pulmonary: Clear to auscultation bilaterally, normal work of breathing. Abdomen: Soft, nontender, nondistended, positive bowel sounds. Musculoskeletal: Atraumatic, no peripheral edema. Neurologic: Patient awake alert and oriented x 3 Skin: Warm, dry, no rash Medical Decision & Procedures ER Provider Diagnostic Interpretation: X-ray results as stated below per interpretation by me and the radiologist: CHEST ONE VIEW PORTABLE HISTORY: Atypical chest pain. COMPARISON: 03/23/2017. FINDINGS: The lungs are clear. Cardiac silhouette is normal in size. No pleural effusions. No pneumothorax. IMPRESSION: No acute process. Electronically signed by: Power Hernandez M.D. 04/21/2017 8:26 PM Dictated Date/Time: 04/21/2017 8:24 PM Laboratory Results 04/21/17 20:20 Red Blood Count 4.85, Mean Corpuscular Volume 83.9, Mean Corpuscular Hemoglobin 30.1, Mean Corpuscular Hemoglobin Concent 35.9, Mean Platelet Volume 9.3, Neutrophils (%) (Auto) 56.1, Lymphocytes (%) (Auto) 34.0, Monocytes (%) (Auto) 7.8, Eosinophils (%) (Auto) 1.6, Basophils (%) (Auto) 0.2, Neutrophils # (Auto) 3.45, Lymphocytes # (Auto) 2.09, Monocytes # (Auto) 0.48, Eosinophils # (Auto) 0.10, Basophils # (Auto) 0.01 04/21/17 20:20 Test 04/21/17 20:20 04/21/17 20:33 04/21/17 21:50 White Blood Count 6.15 K/uL (4.8-10.8) Red Blood Count 4.85 M/uL (4.7-6.1) Hemoglobin 14.6 g/dL (14.0-18.0) Hematocrit 40.7 % (42-52) Mean Corpuscular Volume 83.9 fL (80-100) Mean Corpuscular Hemoglobin 30.1 pg (25-34) Mean Corpuscular Hemoglobin Concent 35.9 g/dl (32-36) Platelet Count 262 K/uL (130-400) Mean Platelet Volume 9.3 fL (7.4-10.4) Neutrophils (%) (Auto) 56.1 % Lymphocytes (%) (Auto) 34.0 % Monocytes (%) (Auto) 7.8 % Eosinophils (%) (Auto) 1.6 % Basophils (%) (Auto) 0.2 % Neutrophils # (Auto) 3.45 K/uL (1.4-6.5) Lymphocytes # (Auto) 2.09 K/uL (1.2-3.4) Monocytes # (Auto) 0.48 K/uL (0.11-0.59) Eosinophils # (Auto) 0.10 K/uL (0-0.5) Basophils # (Auto) 0.01 K/uL (0-0.2) RDW Standard Deviation 39.0 fL (36.4-46.3) RDW Coefficient of Variation 13.0 % (11.5-14.5) Immature Granulocyte % (Auto) 0.3 % Immature Granulocyte # (Auto) 0.02 K/uL (0.00-0.02) Anion Gap 9.0 mmol/L (3-11) Est Creatinine Clear Calc Drug Dose 144.0 ml/min Estimated GFR () 139.9 Estimated GFR (Non- 120.7 BUN/Creatinine Ratio 17.3 (10-20) Calcium Level 9.4 mg/dl (8.5-10.1) Total Bilirubin 1.1 mg/dl (0.2-1) Direct Bilirubin 0.3 mg/dl (0-0.2) Aspartate Amino Transf (AST/SGOT) 38 U/L (15-37) Alanine Aminotransferase (ALT/SGPT) 87 U/L (12-78) Alkaline Phosphatase 47 U/L (45-117) Total Protein 8.5 gm/dl (6.4-8.2) Albumin 4.3 gm/dl (3.4-5.0) Lipase 99 U/L (73-393) Hepatitis B Surface Antigen NEG (NEG) Hepatitis C Antibody PRELIM POS (NEG) Bedside D-Dimer 135 ng/mlFEU (0-450) Bedside Troponin I < 0.030 ng/ml (0-0.045) Urine Color YELLOW Urine Appearance CLEAR (CLEAR) Urine pH 7.0 (4.5-7.5) Urine Specific Velpen 1.015 (1.000-1.030) Urine Protein NEG (NEG) Urine Glucose (UA) NEG (NEG) Urine Ketones NEG (NEG) Urine Occult Blood NEG (NEG) Urine Nitrite NEG (NEG) Urine Bilirubin NEG (NEG) Urine Urobilinogen NEG (NEG) Urine Leukocyte Esterase NEG (NEG) Laboratory results per my review. Medications Administered Medications (Trade) Dose Ordered Sig/Oseas Route Start Time Stop Time Status Last Admin Dose Admin Lidocaine HCl (Viscous Lidocaine 2% Soln) 10 ml NOW STAT PO 04/21/17 19:49 04/21/17 19:54 DC 04/21/17 20:01 10 ML Al Hydroxide/Mg Hydroxide (Maalox Susp) 30 ml NOW STAT PO 04/21/17 19:49 04/21/17 19:54 DC 04/21/17 20:01 30 ML ECG Per My Interpretation Indication: chest pain Rate (beats per minute): 71 Rhythm: normal sinus Findings: no acute ischemic change, no ectopy ED Course 1945: Past medical records reviewed. The patient was evaluated in room B12B. A complete history and physical examination was performed. 1949: Maalox Susp 30 ml PO, Lidocaine HCl 10 ml PO. 1016: Upon reevaluation, the patient appeared to have improvement of his symptoms. I discussed findings with him. He verbalized agreement of the treatment plan. He was discharged home. Medical Decision Differential diagnoses includes acute coronary syndrome, pulmonary embolus, aortic dissection, musculoskeletal pain, pneumonia, pleural effusion, pneumothorax, gastritis, peptic ulcer disease. This patient was evaluated and appeared to be in no distress. IV access was obtained and laboratory work was drawn. Patient was placed on the property assessment monitor centimeter normal sinus rhythm. EKG reveals no evidence of acute ischemia. There is no arrhythmia. The patient was given a GI cocktail with some improvement. Chest x-ray is clear. Laboratory work reveals mildly elevated liver enzymes. Patient states this has been a problem in the past as he was a heavy alcohol user. He has refrain from drinking alcohol with improvement in his liver enzymes. He denies ever having a hepatitis panel drawn. Preliminary hepatitis C screen is positive. Patient was made aware of the findings. I do not think this is the source of the patient's pain today however he was advised to refrain from alcohol and Tylenol use. He was also advised to avoid ibuprofen and aspirin until the source of the epigastric pain is identified. He was placed on Prilosec 20 mg daily with Zantac 150 mg by mouth twice a day as needed. I suspect this is a gastritis or PUD. Patient will return to the emergency department for worsening of symptoms or any medical concerns. Medication Reconcilliation Current Medication List: was personally reviewed by me Blood Pressure Screening Patient's blood pressure: Normal blood pressure Blood pressure disposition: Did not require urgent referral Impression Primary Impression: Gastritis due to nonsteroidal anti-inflammatory drug Additional Impression: Elevated liver enzymes Scribe Attestation The scribe's documentation has been prepared under my direction and personally reviewed by me in its entirety. I confirm that the note above accurately reflects all work, treatment, procedures, and medical decision making performed by me. Departure Information Dispostion Home / Self-Care Prescriptions Ranitidine Hcl (ZANTAC) 150 Mg Tab 150 MG PO BID Y for gastritis, #60 TAB Prov: Yuko Christianson M.D. 04/21/17 Omeprazole (PRILOSEC) 20 Mg Capcr 20 MG PO DAILY, #30 CAP Prov: Yuko Christianson M.D. 04/21/17 Referrals Josh. Ramos M.D. Forms HOME CARE DOCUMENTATION FORM, IMPORTANT VISIT INFORMATION Patient Instructions My [facility] Additional Instructions Diagnosis: Gastritis, elevated liver enzymes Prilosec 20 mg daily. Zantac 150 mg twice daily as needed for gastritis. Do not take Tylenol or ibuprofen, Aleve or aspirin. Avoid alcohol in any quantity. Drink plenty of clear fluids. Follow-up with your primary care physician for reevaluation and discussion of pending laboratory tests. Return to the ER for worsening of symptoms or any medical concerns. Problem Qualifiers
[2017-04-21 20:57] LABS: BASO % 0.2 %; BASO ABS # 0.01 K/uL (0-0.2); EOS % 1.6 %; HEMATOCRIT 40.7 % (42-52); HEMOGLOBIN 14.6 g/dL (14.0-18.0); IG# 0.02 K/uL (0.00-0.02); LYMPH ABS # 2.09 K/uL (1.2-3.4); MEAN CELL VOLUME 83.9 fL (80-100); MEAN CORPUSCULAR HEMOGLOBIN 30.1 pg (25-34); MEAN CORPUSCULAR HGB CONC 35.9 g/dl (32-36); MEAN PLATELET VOLUME 9.3 fL (7.4-10.4); MONO % 7.8 %; MONO ABS # 0.48 K/uL (0.11-0.59); NEUT % 56.1 %; NEUT ABS # 3.45 K/uL (1.4-6.5); PLATELET COUNT 262 K/uL (130-400); WHITE BLOOD COUNT 6.15 K/uL (4.8-10.8)
[2017-04-21 21:05] LABS: ALBUMIN 4.3 gm/dl (3.4-5.0); CALCIUM 9.4 mg/dl (8.5-10.1); CREATININE 0.8 mg/dl (0.60-1.40); POTASSIUM 4.3 mmol/L (3.5-5.1)
[2017-04-21 21:08] LABS: TOTAL PROTEIN 8.5 gm/dl (6.4-8.2)
[2017-04-21 22:02] LABS: HEP C IGG 13 YRS+OLDER_RFLX PRELIM POS (NEG)
[2017-04-21] MEDS ORDERED: PRLSR20 PO (22:10)
[2017-04-21] MEDS ORDERED: RANI150T3 PO (22:10)
[2017-04-21 22:20] VITALS: PULSE 74; O2SAT 99
[2017-04-21 22:31] VITALS: BP 124/73
[2017-04-23 05:45] LABS: HEPATITIS A IGM TC 51813E NON-REACTIVE (NON-REACTIVE); HEPATITIS B CORE IGM TC51854R NON-REACTIVE (NON-REACTIVE)
[2017-04-25 15:30] LABS: HEPATITIS C RNA TMA QUAL Detected
== END 2017-04-21 22:38 | disposition home or self-care (01) ==
LOC: C.EDB 19:22
DX: K29.70 Gastritis, unspecified, without bleeding (principal); R94.5 Abnormal results of liver function studies; F17.210 Nicotine dependence, cigarettes, uncomplicated; Z87.442 Personal history of urinary calculi

== ENCOUNTER 2017-07-15 03:11 | Emergency (ER) | payer OTHER ==
[~2017-07-15] VITALS: Ht 185.4 cm; Wt 75.0 kg
[~2017-07-15 03:11] MED LIST changes: -ASCA500 PO; -MULT-506 PO; -OMEG10007 PO; +PRLSR20 PO; +RANI150T3 PO
[2017-07-15 03:15] VITALS: BP 112/76; PULSE 89; TEMP 36.5; O2SAT 98; Ht 185.4 cm; Wt 75.0 kg
[2017-07-15] MEDS ORDERED: KETOROLAC TROMETHAMINE 30 MG/ML VIAL IV STA (03:35)
[2017-07-15] MEDS ORDERED: CLON0.5T3 PO (03:44)
--- NOTE | 2017-07-15 04:15 | EMERGENCY ROOM VISIT NOTE ---
History First contact with patient: 03:18 Chief Complaint: FLANK PAIN Stated Complaint: SEVERE SIDE PAIN - BOTH SIDES History of Present Illness The patient is a 27 year old male who presents to the Emergency Room with complaints of pain in both of his sides that is "like so bad." The patient states that he has had this pain for the past 9 months. He states that he has not gotten much sleep over the past 2 days due to the pain. He has been seen here multiple times and states that all of the testing is always negative. He has been told that the pain is musculoskeletal in the past. He states the pain is in both sides of his ribs and moves from side to side. The pain radiates into his back at times. He rates the discomfort at 10/10. He has tried naproxen and muscle relaxers in the past without relief. He does report he was seen at [facility] 2 weeks ago and was told that his pain could be due to costochondritis. He saw a primary care provider one week ago but states that he is not planning on following up with her again because she does not seem to care about his pain. Apart from that visit, he has never followed up with a PCP regarding his pain. He denies nausea/vomiting, shortness of breath or urinary symptoms. He denies any fever/chills. Review of Systems A complete 10 point review of systems was reviewed with the patient with pertinent positives and negatives as per history of present illness. All else were negative. Past Medical/Surgical History Medical Problems: (1) Kidney stones (2) No active medical problems Family History Patient reports no known family medical history. Social History Smoking Status: Current Every Day Smoker Alcohol Use: other Marital Status: in relationship Occupation Status: employed Current/Historical Medications Scheduled Clonazepam (Klonopin), Unknown Dose PO DIRECTED Physical Exam Vital Signs Date Time Temp Pulse Resp B/P (MAP) Pulse Ox O2 Delivery O2 Flow Rate FiO2 07/15/17 03:15 36.5 89 18 112/76 98 Room Air Physical Exam VITALS: Vitals are noted on the nurse's note and reviewed by myself. Vital signs stable. GENERAL: This is a 27-year-old male, in no acute distress, nondiaphoretic, well- developed well-nourished. SKIN: The skin was without rashes. EARS: External auditory canals clear, tympanic membranes pearly meyer without erythema or effusion bilaterally. EYES: Pupils equal round and reactive to light and accommodation. MOUTH: Mucous membranes moist. NECK: Supple without nuchal rigidity. There are a few mildly enlarged right cervical lymph nodes. HEART: Regular rate and rhythm without murmurs gallops or rubs. LUNGS: Clear to auscultation bilaterally without wheezes, rales or rhonchi. No retractions or accessory muscle use. ABDOMEN: Positive bowel sounds x 4. Soft, nontender to palpation. MUSCULOSKELETAL: No tenderness to palpation of the back or anterior chest wall. NEURO: Patient was alert and oriented to person place and time. Medical Decision & Procedures ER Provider Diagnostic Interpretation: 1 VIEW CHEST: No acute cardiopulmonary abnormalities. Laboratory Results Medical Decision Differential diagnosis includes pancreatitis, cholecystitis, pyelonephritis, kidney stone, musculoskeletal pain, PE, pneumonia, psychosomatic, among others. The patient was evaluated as above. He has had ongoing pain for 9 months. The pain is migratory in nature and moves throughout his upper abdomen/lower ribs and mid back. The patient has had several visits to this emergency department for similar symptoms and multiple workups which have been completely negative. He saw a PCP 1 week ago but is not planning to follow-up for any further evaluation. I did order labs and a chest x-ray, however the patient became frustrated because he states he has had these tests done in the past. He was ordered 30 mg Toradol for pain but declined IV access. When I was going to speak with the patient regarding his chest x-ray, I was informed by nursing staff that the patient had left the ER. Medication Reconcilliation Current Medication List: was personally reviewed by me Blood Pressure Screening Patient's blood pressure: Normal blood pressure Impression Primary Impression: Bilateral upper abdominal pain Departure Information Referrals No Doctor, Assigned (PCP) Patient Instructions [facility]
--- NOTE | 2017-07-15 06:38 | DIAGNOSTIC IMAGING REPORT ---
CHEST ONE VIEW PORTABLE HISTORY: 27 years-old Male b/l rib pain acute bilateral rib pain, without reported trauma COMPARISON: Chest radiograph 04/21/2017 TECHNIQUE: Portable AP view of the chest FINDINGS: Cardiomediastinal and hilar silhouettes are within normal limits. There is no pneumothorax, pleural effusion, focal airspace consolidation or overt pulmonary edema. Bones of the chest appear grossly intact. No acute displaced rib fracture identified. IMPRESSION: No acute process. The above report was generated using voice recognition software. It may contain grammatical, syntax or spelling errors. Electronically signed by: Lele Blancas M.D. 07/15/2017 6:36 AM Dictated Date/Time: 07/15/2017 6:35 AM
== END 2017-07-15 03:47 | disposition left against medical advice (07) ==
LOC: C.EDB 03:12
DX: R10.11 Right upper quadrant pain (principal); R10.12 Left upper quadrant pain; F17.200 Nicotine dependence, unspecified, uncomplicated